=== PATIENT | female | born 2000 | race Caucasian/White ===

== ENCOUNTER 2020-08-05 02:25 | Emergency (ER) | payer OTHER ==
[~2020-08-05] VITALS: Ht 157.5 cm; Wt 64.0 kg
[2020-08-05] MEDS ORDERED: BIRTH CONTROL (02:39)
--- NOTE | 2020-08-05 02:40 | NUR ---
PT HAS HEADACHE THAT IS WORSE WITH LIGHT AND SHE SAYS IT AFFECTS HER SPEECH AND LEFT SIDE OF BODY TINGLING. PT STATED "SHE HAS HX OF MIGRAINS AND THESE SYMPTOMS ARE NORMAL FOR HER".
[2020-08-05] MEDS ORDERED: KETOROLAC 30 MG/1 ML IVPush ONE (03:00)
[2020-08-05] MEDS ORDERED: PROCHLORPERAZINE 5 MG/ML, 2ML IVPush ONE (03:00)
[2020-08-05] MEDS ORDERED: DIPHENHYDRAMINE 50 MG/ML, 1ML IVPush ONE (03:00)
[2020-08-05] MEDS ORDERED: KETOROLAC 30 MG/1 ML ONE (03:10)
[2020-08-05] MEDS ORDERED: PROCHLORPERAZINE 5 MG/ML, 2ML ONE (03:10)
[2020-08-05] MEDS ORDERED: DIPHENHYDRAMINE 50 MG/ML, 1ML ONE (03:10)
--- NOTE | 2020-08-05 03:26 | NUR ---
TASK RN PT MEDICATED PER JUL, RESTING ON GURNEY LIGHTS DIMMED DENIES FURTHER NEEDS. STS FORGOT TO PRODUCE URINE SAMPLE WHEN UP TO RESTROOM
[2020-08-05 04:15] VITALS: BP 126/78
== END 2020-08-05 04:17 | disposition home or self-care (01) ==
LOC: ED 03:31
DX: G43.109 Migraine with aura, not intractable, without status migrainosus (principal); R20.0 Anesthesia of skin
CPT/HCPCS: 96374; 96375; 99284; J0780; J1200; J1885